=== PATIENT | female | born 1955 | race Caucasian/White ===

== ENCOUNTER → 2017-07-17 | Outpatient (CLI) | payer OTHER ==
--- NOTE | 2017-07-17 16:42 | RADIOLOGY REPORT (SQ) ---
EXAM DESCRIPTION: FOOT RIGHT COMPLETE COMPLETED DATE/TIME: 07/17/2017 4:32 pm REASON FOR STUDY: UNSPECIFIED INJURY OF RIGHT FOOT, INITIAL ENCOUNTER S99.921A UNSPECIFIED INJURY O F RIGHT FOOT, INITIAL ENCOUNTER COMPARISON: None. NUMBER OF VIEWS: Three views. TECHNIQUE: AP, lateral and oblique radiographic images acquired of the right foot. LIMITATIONS: None. FINDINGS: MINERALIZATION: Normal. BONES: No acute fracture or dislocation. Prominent hallux valgus and bunion deformity of the 1st toe . No worrisome bone lesions. JOINTS: No effusions. SOFT TISSUES: No soft tissue swelling. No foreign body. OTHER: No other significant finding. IMPRESSION: PROMINENT HALLUX VALGUS AND BUNION DEFORMITY OF THE 1ST TOE. NO RADIOGRAPHIC EVIDENCE OF ACUTE INJURY. TECHNICAL DOCUMENTATION: JOB ID: [id number] [employer]- All Rights Reserved
== END ==
LOC: OD 16:19
PROVIDERS: ATTEND Family Medicine
DX: S99.921A Unspecified injury of right foot, initial encounter (principal); X58.XXXA Exposure to other specified factors, initial encounter

== ENCOUNTER → 2017-07-23 | Outpatient (CLI) | payer OTHER ==
--- NOTE | 2017-07-23 11:33 | RADIOLOGY REPORT (SQ) ---
EXAM DESCRIPTION: FOOT RIGHT COMPLETE COMPLETED DATE/TIME: 07/23/2017 11:02 am REASON FOR STUDY: UNSPECIFIED INJURY OF RIGHT FOOT, SUBSEQUENT ENCOUNTER COMPARISON: 07/17/2017. NUMBER OF VIEWS: Three views right foot. LIMITATIONS: None. FINDINGS: Normal bone density. Great toe DJD. Mild hallux valgus. 1st MP joint bunion. No sublux ation or dislocation or suggestion of acute fracture. Chronic degenerative change also noted in the 2nd MP joint. No radiopaque foreign body. No joint effusion. OTHER: No other significant finding. IMPRESSION: Degenerative changes without evidence of fracture. No bone lesion. TECHNICAL DOCUMENTATION: JOB ID: [id number]
== END ==
LOC: OD 10:45
PROVIDERS: ATTEND Physician Assistant
DX: S99.921D Unspecified injury of right foot, subsequent encounter (principal); X58.XXXD Exposure to other specified factors, subsequent encounter

== ENCOUNTER → 2018-03-20 | Outpatient (CLI) | payer OTHER ==
--- NOTE | 2018-03-20 14:00 | WOMENS IMAGING REPORT ---
EXAM DESCRIPTION: BILAT SCREENING MAMMO W/CAD COMPLETED DATE/TIME: 03/20/2018 9:17 am REASON FOR STUDY: SCREENING MAMMO Z12.31 ENCNTR SCREEN MAMMOGRAM FOR MALIGNANT NEOPLASM OF NANCY COMPARISON: None. TECHNIQUE: Standard craniocaudal and mediolateral oblique views of each breast recorded using digita l acquisition. LIMITATIONS: None. FINDINGS: No masses, calcifications or architectural distortion. No areas of suspicion. Read with the assistance of CAD. .[facility] - R2 Cenova Version 1.3 .[facility] - R2 Cenova Version 1.3 .[facility] - R2 Cenova Version 2.4 .[facility] - R2 Cenova Version 2.4 .[facility] - R2 Tool Room Lathe Operator Version 9.2 IMPRESSION: NORMAL MAMMOGRAM. BIRADS 1. BREAST DENSITY: b. There are scattered areas of fibroglandular density. BIRAD: 1 NEGATIVE RECOMMENDATION: ROUTINE SCREENING COMMENT: The patient has been notified of the results by letter per MQSA requirements. Additional no tification policies are in place for contacting patient with suspicious or incomplete findings. Quality ID #[id number]: The [employer] recommends an annual screening mammogram for women aged 40 years or over. This facility utilizes a reminder system to ensure that all patients receive reminder letters, and/or direct phone calls for appointments. This includes reminders for routine scr eening mammograms, diagnostic mammograms, or other Breast Imaging Interventions when appropriate. Th is patient will be placed in the appropriate reminder system. The [employer] (ACR) has developed recommendations for screening MRI of the breast s in certain patient populations, to be used in conjunction with mammography. Breast MRI surveillanc e may be appropriate for women with more than 20% lifetime risk of developing breast cancer as deter mined by genetic testing, significant family history of the disease, or history of mantle radiation f or Hodgkins Disease. ACR Practice Guidelines 2008. TECHNICAL DOCUMENTATION: FINDING NUMBER: (1) ASSESSMENT: (1) JOB ID: [id number] [employer]- All Rights Reserved Reading location - IP/workstation name: [email or web address]
== END ==
LOC: WI 08:52
PROVIDERS: ATTEND Family Medicine
DX: Z12.31 Encounter for screening mammogram for malignant neoplasm of breast (principal)
CPT/HCPCS: 77067

== ENCOUNTER 2019-04-24 15:51 | Emergency (ER) | payer OTHER ==
[2019-04-24] MEDS ORDERED: ASPIRIN 81 MG TABLET, CHEWABLE PO ONE (16:16)
--- NOTE | 2019-04-24 16:20 | ER Document Report ---
ED Medical Screen (RME) - General Chief Complaint: Chest Pain Stated Complaint: CHEST PAIN Time Seen by Provider: 04/24/19 16:12 Primary Care Provider: BENIGNO ROOT PA-C [Primary Care Provider] - Follow up as needed Mode of Arrival: Ambulatory Information source: Patient Notes: Patient presents to the emergency department for complaints of back pain that radiates into her chest. Reports symptoms since Friday. Reports history of blood pressure. Denies history of CAD. EKG is such as pericarditis. No obvious friction rub appreciated. No other complaints such as fever vomiting diarrhea reports she is taken Excedrin migraine did not help her pain. I have greeted and performed a rapid initial assessment of this patient. A comprehensive ED assessment and evaluation of the patient, analysis of test results and completion of the medical decision making process will be conducted by additional ED providers. Dictation of this chart was performed using voice recognition software; therefore, there may be some unintended grammatical errors. TRAVEL OUTSIDE OF THE [place] IN LAST 30 DAYS: No - Related Data Allergies/Adverse Reactions: No Known Allergies Allergy (Verified 04/24/19 15:52) Past Medical History - Social History Chew tobacco use (# tins/day): No Frequency of alcohol use: None Drug Abuse: None - Past Medical History Cardiac Medical History: Reports: Hx Hypercholesterolemia, Hx Hypertension Renal/ Medical History: Denies: Hx Peritoneal Dialysis Past Surgical History: Reports: Hx Hysterectomy Physical Exam - Vital signs Vitals: Temp Pulse BP Pulse Ox 99.1 F 102 H 146/85 H 95 04/24/19 16:06 04/24/19 16:06 04/24/19 16:06 04/24/19 16:06 Course - Vital Signs Vital signs: Temp Pulse Resp BP Pulse Ox 99.1 F 102 H 146/85 H 95 04/24/19 16:06 04/24/19 16:06 04/24/19 16:06 04/24/19 16:06 Doctor's Discharge - Discharge Referrals: BENIGNO ROOT PA-C [Primary Care Provider] - Follow up as needed
--- NOTE | 2019-04-24 16:41 | RADIOLOGY REPORT (SQ) ---
EXAM DESCRIPTION: CHEST 2 VIEWS COMPLETED DATE/TIME: 04/24/2019 4:25 pm REASON FOR STUDY: cp COMPARISON: None. EXAM PARAMETERS: NUMBER OF VIEWS: two views TECHNIQUE: Digital Frontal and Lateral radiographic views of the chest acquired. RADIATION DOSE: NA LIMITATIONS: none FINDINGS: LUNGS AND PLEURA: No opacities, masses or pneumothorax. No pleural effusion. MEDIASTINUM AND HILAR STRUCTURES: No masses or contour abnormalities. HEART AND VASCULAR STRUCTURES: Mild cardiomegaly BONES: No acute findings. HARDWARE: None in the chest. OTHER: No other significant finding. IMPRESSION: NO ACUTE RADIOGRAPHIC FINDING IN THE CHEST. TECHNICAL DOCUMENTATION: JOB ID: [id number] [employer]- All Rights Reserved Reading location - IP/workstation name: [email or web address]
[2019-04-24] MEDS ORDERED: MORPHINE SULFATE 10 MG/ML INJ IV ONE ×3 (17:03→22:28)
[2019-04-24 17:04] LABS: ABSOLUTE BASOPHILS # (AUTO) 0.1 10^3/uL (0.0-0.2); ABSOLUTE EOSINOPHILS # (AUTO) 0.1 10^3/uL (0.0-0.6); ABSOLUTE LYMPHOCYTES (AUTO) 1.1 10^3/uL (0.5-4.7); ABSOLUTE MONOCYTES (AUTO) 1.5 10^3/uL (0.1-1.4); ABSOLUTE NEUT (AUTO) 11.6 10^3/uL (1.7-8.2); BASOPHILS % (AUTO) 0.4 % (0-2); HEMATOCRIT 36.6 % (36.0-47.0); HEMOGLOBIN 12.6 g/dL (12.0-15.5); LYMPHOCYTES % (AUTO) 7.9 % (13-45); MEAN CORPUSCULAR HEMOGLOBIN 29.6 pg (27.0-33.4); MEAN CORPUSCULAR HGB CONC 34.4 g/dL (32.0-36.0); MEAN CORPUSCULAR VOLUME 86 fl (80-97); MONOCYTES % (AUTO) 10.5 % (3-13); PLATELET COUNT 314 10^3/uL (150-450); RED BLOOD COUNT 4.25 10^6/uL (3.72-5.28); RED CELL DISTRIBUTION WIDTH 12.9 % (11.5-14.0); SEGMENTED NEUTROPHILS % (AUTO) 80.2 % (42-78); TOTAL CELLS COUNTED % (AUTO) 100 %; WHITE BLOOD COUNT 14.5 10^3/uL (4.0-10.5)
[2019-04-24] MEDS ORDERED: ONDANSETRON HCL INJ/PF 4 MG/2 ML SDV IV ONE (17:04)
--- NOTE | 2019-04-24 17:07 | ER Document Report ---
ED General - General Chief Complaint: Chest Pain Stated Complaint: CHEST PAIN Time Seen by Provider: 04/24/19 16:12 Primary Care Provider: BENIGNO ROOT PA-C [Primary Care Provider] - Follow up as needed Mode of Arrival: Ambulatory Information source: Patient, [facility] Records Notes: 63-year-old female with hypertension, hyperlipidemia presents with complaint of chest and back pain that started 4 days prior to arrival while at rest. Patient states the pain initially started between her shoulder blades and slowly progressed to radiating to the front of her chest. She describes the pain as a constant pressure-like pain. Patient reports the pain is worse with lying flat. She denies any associated fever, chills nausea diaphoresis or shortness of breath. She denies prior similar symptoms. Patient denies any recent injury, overuse, history of PE, DVT. She does report a nonproductive nagging cough for the last few weeks. TRAVEL OUTSIDE OF THE [place] IN LAST 30 DAYS: No - HPI Onset: Last week Onset/Duration: Gradual, Persistent, Worse Quality of pain: Pressure Severity: Moderate Pain Level: 2 Associated symptoms: Chest pain, Other - Back pain Exacerbated by: Movement, Deep breathing Relieved by: Denies Similar symptoms previously: No Recently seen / treated by doctor: No - Related Data Allergies/Adverse Reactions: No Known Allergies Allergy (Verified 04/24/19 15:52) Past Medical History - General Information source: Patient - Social History Smoking Status: Never Smoker Chew tobacco use (# tins/day): No Frequency of alcohol use: None Drug Abuse: None Lives with: Alone Family History: Reviewed & Not Pertinent Patient has suicidal ideation: No Patient has homicidal ideation: No - Past Medical History Cardiac Medical History: Reports: Hx Hypercholesterolemia, Hx Hypertension Renal/ Medical History: Denies: Hx Peritoneal Dialysis Past Surgical History: Reports: Hx Hysterectomy Review of Systems - Review of Systems Notes: REVIEW OF SYSTEMS: CONSTITUTIONAL : Denies fever, chills, or sweats. Denies recent illness. Denies weight loss, recent hospitalizations. EENT: Denies visual changes, eye pain. Denies sore throat, oral lesions, difficulty swallowing. CARDIOVASCULAR: + chest pain. Denies palpitations. Denies lower extremity edema. RESPIRATORY: + cough. Denies shortness of breath, wheezing. GASTROINTESTINAL: Denies abdominal pain or distention. Denies nausea, vomiting, or diarrhea. Denies blood in vomitus, stools, or per rectum. Denies black, tarry stools. Denies constipation. GENITOURINARY: Denies difficulty urinating, painful urination, frequency, blood in urine, or vaginal discharge. MUSCULOSKELETAL: Denies neck pain or stiffness. Denies joint pain or swelling. SKIN: Denies rash, lesions or sores. HEMATOLOGIC : Denies easy bruising or bleeding. LYMPHATIC: Denies swollen glands. NEUROLOGICAL: Denies confusion or altered mental status. Denies loss of consciousness. Denies dizziness or lightheadedness. Denies headache. Denies weakness or paralysis. Denies problems difficulty with ambulation, slurred speech. Denies sensory loss, numbness, or tingling. Denies seizures. PSYCHIATRIC: Denies anxiety or stress. Denies depression, suicidal ideation, or homicidal ideation. Denies visual or auditory hallucinations. Physical Exam - Vital signs Vitals: Temp Pulse BP Pulse Ox 99.1 F 102 H 146/85 H 95 04/24/19 16:06 04/24/19 16:06 04/24/19 16:06 04/24/19 16:06 - Notes Notes: PHYSICAL EXAMINATION: GENERAL: Well-appearing, well-nourished and in no acute distress. HEAD: Atraumatic, normocephalic. EYES: Pupils equal round and reactive to light, extraocular movements intact, conjunctiva are normal. ENT: Nares patent, oropharynx clear without exudates. Moist mucous membranes. NECK: Normal range of motion, supple without lymphadenopathy LUNGS: Breath sounds clear to auscultation bilaterally and equal. No wheezes rales or rhonchi. HEART: Regular rate and rhythm without murmurs ABDOMEN: Soft, nontender, nondistended abdomen. No guarding, no rebound. No masses appreciated. Female : deferred Musculoskeletal: Normal range of motion, no pitting or edema. No cyanosis. NEUROLOGICAL: Cranial nerves grossly intact. Normal speech, normal gait. Normal sensory, motor exams PSYCH: Normal mood, normal affect. SKIN: Warm, Dry, normal turgor, no rashes or lesions noted. Course - Re-evaluation Re-evalutation: Laboratory 04/24/19 04/24/19 04/24/19 16:45 16:45 16:45 WBC 14.5 H RBC 4.25 Hgb 12.6 Hct 36.6 MCV 86 MCH 29.6 MCHC 34.4 RDW 12.9 Plt Count 314 Seg Neutrophils % 80.2 H Lymphocytes % 7.9 L Monocytes % 10.5 Eosinophils % 1.0 Basophils % 0.4 Absolute Neutrophils 11.6 H Absolute Lymphocytes 1.1 Absolute Monocytes 1.5 H Absolute Eosinophils 0.1 Absolute Basophils 0.1 ESR 93 H PT INR APTT Sodium 128.1 L Potassium 3.2 L Chloride 85 L Carbon Dioxide 32 H Anion Gap 11 BUN 16 Creatinine 0.75 Est GFR ( Amer) > 60 Est GFR (Non-Af Amer) > 60 Glucose 150 H Calcium 8.6 Total Bilirubin 1.5 H Direct Bilirubin 0.4 Neonat Total Bilirubin Not Reportable Neonat Direct Bilirubin Not Reportable Neonat Indirect Bili Not Reportable AST 53 H ALT 48 Alkaline Phosphatase 123 Creatine Kinase 94 Troponin I 0.806 C-Reactive Protein 218.4 H Total Protein 6.9 Albumin 3.8 Lipase 27.5 Urine Color Urine Appearance Urine pH Ur Specific [place] Urine Protein Urine Glucose (UA) Urine Ketones Urine Blood Urine Nitrite Urine Bilirubin Urine Urobilinogen Ur Leukocyte Esterase Urine WBC (Auto) Urine RBC (Auto) Urine Bacteria (Auto) Squamous Epi Cells Auto Urine Ascorbic Acid 04/24/19 04/24/19 16:45 17:08 WBC RBC Hgb Hct MCV MCH MCHC RDW Plt Count Seg Neutrophils % Lymphocytes % Monocytes % Eosinophils % Basophils % Absolute Neutrophils Absolute Lymphocytes Absolute Monocytes Absolute Eosinophils Absolute Basophils ESR PT 13.6 INR 1.04 APTT 32.8 Sodium Potassium Chloride Carbon Dioxide Anion Gap BUN Creatinine Est GFR ( Amer) Est GFR (Non-Af Amer) Glucose Calcium Total Bilirubin Direct Bilirubin Neonat Total Bilirubin Neonat Direct Bilirubin Neonat Indirect Bili AST ALT Alkaline Phosphatase Creatine Kinase Troponin I C-Reactive Protein Total Protein Albumin Lipase Urine Color YELLOW Urine Appearance CLEAR Urine pH 6.0 Ur Specific [place] 1.008 Urine Protein NEGATIVE Urine Glucose (UA) NEGATIVE Urine Ketones NEGATIVE Urine Blood SMALL H Urine Nitrite NEGATIVE Urine Bilirubin NEGATIVE Urine Urobilinogen 2.0 H Ur Leukocyte Esterase NEGATIVE Urine WBC (Auto) 2 Urine RBC (Auto) 3 Urine Bacteria (Auto) TRACE Squamous Epi Cells Auto <1 Urine Ascorbic Acid NEGATIVE Chest X-Ray 04/24/19 16:16 IMPRESSION: NO ACUTE RADIOGRAPHIC FINDING IN THE CHEST. Chest/Abdomen CTA 04/24/19 17:01 IMPRESSION: 1. Prominent pericardial thickening/effusion. 2. Bibasilar atelectasis or infiltrate. Bilateral pleural effusions. Temp Pulse Resp BP Pulse Ox 99.1 F 102 H 24 H 139/87 H 96 04/24/19 16:06 04/24/19 16:06 04/24/19 17:01 04/24/19 17:01 04/24/19 17:01 63-year-old female with hypertension, hyperlipidemia presents with complaint of chest and back pain that started 4 days prior to arrival while at rest. Patient states the pain initially started between her shoulder blades and slowly progressed to radiating to the front of her chest. She describes the pain as a constant pressure-like pain. Patient reports the pain is worse with lying flat. She denies any associated fever, chills nausea diaphoresis or shortness of breath. She denies prior similar symptoms. Patient denies any recent injury, overuse, history of PE, DVT. She does report a nonproductive nagging cough for the last few weeks. Upon arrival patient was placed on athletic monitor and an EKG was obtained. Patient was not significant pain and did receive morphine and Zofran. CBC does show a leukocytosis of 14. ESR and CRP are markedly elevated. Troponin and delta troponin are also elevated. CMP does show hyponatremia and hyperglycemia. 04/24/19 18:52 I did speak to Dr. Sears regarding the patient's elevated troponin CTA findings and he recommends transfer at this time. 04/24/19 19:05 [facility] contacted for transfer 04/24/19 21:19 I did speak to the local operator working for Dr. Vargas at [facility] who recommends the patient receive aspirin and colchicine which she did receive. Concern is that patient has myopericarditis. Patient has been accepted to [facility]. She is agreeable to this. 04/24/19 21:21 04/24/19 21:22 - Vital Signs Vital signs: Temp Pulse Resp BP Pulse Ox 99.1 F 102 H 23 H 137/91 H 100 04/24/19 16:06 04/24/19 16:06 04/24/19 20:01 04/24/19 20:01 04/24/19 20:01 - Laboratory Result Diagrams: 04/24/19 16:45 04/24/19 16:45 Laboratory results interpreted by me: 04/24/19 04/24/19 04/24/19 16:45 16:45 17:08 WBC 14.5 H Seg Neutrophils % 80.2 H Lymphocytes % 7.9 L Absolute Neutrophils 11.6 H Absolute Monocytes 1.5 H ESR 93 H Sodium 128.1 L Potassium 3.2 L Chloride 85 L Carbon Dioxide 32 H Glucose 150 H Total Bilirubin 1.5 H AST 53 H C-Reactive Protein 218.4 H Urine Blood SMALL H Urine Urobilinogen 2.0 H - Diagnostic Test Radiology reviewed: Image reviewed, Reports reviewed - EKG Interpretation by Me EKG shows normal: Sinus rhythm When compared to previous EKG there are: Changes noted, Other - Diffuse ST elevation with CT depression Critical Care Note - Critical Care Note Total time excluding time spent on procedures (mins): 40 - Minutes of critical care time spent in direct contact evaluating and reevaluating the patient, treating symptoms, reviewing labs and studies and speaking with family and consultants excluding any procedures Discharge - Discharge Clinical Impression: Myopericarditis, Elevated troponin, Hyperglycemia, Pleural effusion Chest pain Qualifiers: Chest pain type: unspecified Qualified Code(s): R07.9 - Chest pain, unspecified Leukocytosis Qualifiers: Leukocytosis type: unspecified Qualified Code(s): D72.829 - Elevated white blood cell count, unspecified Condition: Good Disposition: Critical Access Hospital Forms: Elevated Blood Pressure Referrals: BENIGNO ROOT PA-C [Primary Care Provider] - Follow up as needed
[2019-04-24 17:08] LABS: INTERNATIONAL RATION (INR) 1.04; PARTIAL THROMBOPLASTIN TIME 32.8 SEC (23.5-35.8); PROTHROMBIN TIME 13.6 SEC (11.4-15.4)
[2019-04-24 17:20] LABS: ALANINE AMINOTRANSFERASE 48 U/L (9-52); ALBUMIN 3.8 g/dL (3.5-5.0); ALKALINE PHOSPHATASE 123 U/L (38-126); ANION GAP 11 (5-19); ASPARTATE AMINO TRANSFERASE 53 U/L (14-36); BILIRUBIN,DIRECT 0.4 mg/dL (0.0-0.4); BILIRUBIN,TOTAL 1.5 mg/dL (0.2-1.3); BLOOD UREA NITROGEN 16 mg/dL (7-20); CALCIUM 8.6 mg/dL (8.4-10.2); CARBON DIOXIDE 32 mmol/L (22-30); CHLORIDE 85 mmol/L (98-107); CREATINE KINASE 94 U/L (30-135); GLUCOSE 150 mg/dL (75-110); LIPASE 27.5 U/L (23-300); POTASSIUM 3.2 mmol/L (3.6-5.0); SODIUM 128.1 mmol/L (137-145); TOTAL PROTEIN 6.9 g/dL (6.3-8.2)
[2019-04-24 17:33] LABS: C-REACTIVE PROTEIN 218.4 mg/L (<10.0)
[2019-04-24 17:43] LABS: ERYTHROCYTE SEDIMENTATION RATE 93 mm/hr (0-30)
[2019-04-24 17:49] LABS: APPEARANCE,URINE CLEAR; COLOR,URINE YELLOW; GLUCOSE, URINE NEGATIVE (NEGATIVE)
[2019-04-24 17:50] LABS: BILIRUBIN,URINE NEGATIVE (NEGATIVE); KETONES,URINE NEGATIVE (NEGATIVE); LEUKOCYTE ESTERASE,URINE NEGATIVE (NEGATIVE); NITRITE,URINE NEGATIVE (NEGATIVE); PROTEIN,URINE NEGATIVE (NEGATIVE); URINE SPECIFIC GRAVITY 1.008
--- NOTE | 2019-04-24 18:27 | RADIOLOGY REPORT (SQ) ---
EXAM DESCRIPTION: CTA CHEST COMPLETED DATE/TIME: 04/24/2019 6:02 pm REASON FOR STUDY: sob chest and back pain COMPARISON: None. TECHNIQUE: CT scan of the chest performed using helical scanning technique with dynamic intravenous contrast injection. Images reviewed with lung, soft tissue and bone windows. Reconstructed coronal and sagittal MPR images reviewed. Additional 3 dimensional post-processing performed to develop Maximal Intensity Projection images (PA P). All images stored on PACS. All CT scanners at this facility use dose modulation, iterative reconstruction, and/or weight based d osing when appropriate to reduce radiation dose to as low as reasonably achievable (ALARA). [facility]: Dose Right [facility]: CareDose [facility]: Dose Right [facility]: Teradose 4D [facility]: [employer] CONTRAST TYPE AND DOSE: contrast/concentration: Isovue 350.00 mg/ml; Total Contrast Delivered: 54.0 ml; Total Saline Delivered: 79.0 ml Contrast bolus optimized for the pulmonary arteries. Not diagnostic for the aorta. RENAL FUNCTION: Creatinine: 0.75 RADIATION DOSE: CT Rad equipment meets quality standard of care and radiation dose reduction techn[employer]ion Software ues were employed. CTDIvol: 3.3 - 14.3 mGy. DLP: 476 mGy-cm. . LIMITATIONS: None. FINDINGS: LUNGS AND PLEURA: Bilateral pleural effusions with bibasilar atelectasis. AORTA AND GREAT VESSELS: Bovine arch. No aneurysm. Contrast bolus not optimized for the aorta. HEART: Prominent pericardial thickening/ effusion. . No significant coronary artery calcifications. PULMONARY ARTERIES: No emboli visualized in the main pulmonary arteries or the segmental branches. HILAR AND MEDIASTINAL STRUCTURES: Small nonenlarged right paratracheal and pretracheal nodes. Small subcarinal nodes. UPPER ABDOMEN: The liver and spleen demonstrate no abnormality. The adrenal glands demonstrate no ab normality. THYROID AND OTHER SOFT TISSUES: No abnormality. BONES: No acute or significant finding. 3D MIPS: Confirm above findings. IMPRESSION: 1. Prominent pericardial thickening/effusion. 2. Bibasilar atelectasis or infiltrate. Bilateral pleural effusions. COMMENT: Quality ID # [id number]: Final reports with documentation of one or more dose reduction techniques (e.g., Automated exposure control, adjustment of the mA and/or kV according to patient size, use of iterative reconstruction technique) TECHNICAL DOCUMENTATION: JOB ID: [id number]- All Rights Reserved Reading location - IP/workstation name: [email or web address]
--- NOTE | 2019-04-24 19:17 | EKG REPORT ---
SEVERITY:- ABNORMAL ECG - SINUS TACHYCARDIA BORDERLINE T WAVE ABNORMALITIES : Confirmed by: Miriam Reynolds 24-Apr-2019 19:16:43
--- NOTE | 2019-04-24 19:18 | EKG REPORT ---
SEVERITY:- ABNORMAL ECG - SINUS RHYTHM NONSPECIFIC ST-T CHANGES : Confirmed by: Miriam Reynolds 24-Apr-2019 19:17:37
[2019-04-24] MEDS ORDERED: COLCHICINE 0.6 MG TABLET PO ONE (20:06)
[2019-04-24] MEDS ORDERED: ASPIRIN 325 MG TABLET PO ONE (20:07)
[2019-04-24 22:13] VITALS: BP 118/88
== END 2019-04-24 20:27 | disposition short-term general hospital (02) ==
LOC: ER 15:51
DX: I31.9 Disease of pericardium, unspecified (principal); R73.9 Hyperglycemia, unspecified; R79.89 Other specified abnormal findings of blood chemistry; J90 Pleural effusion, not elsewhere classified; D72.829 Elevated white blood cell count, unspecified; R07.9 Chest pain, unspecified; M54.9 Dorsalgia, unspecified; R05 Cough; I10 Essential (primary) hypertension; E78.5 Hyperlipidemia, unspecified; Z90.710 Acquired absence of both cervix and uterus
CPT/HCPCS: 93005; 96376; 99291; 96374; 96375; 36415; 82550; 83690; 85025; 85652; 85610; 85730; 86140; 80053; 81001; 84484; 71046; 71275; 93010; J2270; J2405